=== PATIENT | male | born 1970 | race Caucasian/White ===

== ENCOUNTER 2018-01-10 08:01 | Emergency (ER) | payer OTHER ==
[2018-01-10] MEDS ORDERED: (BACK ORDERED; DO NOT ORDER) DIAZEPAM 5 MG/ML DISP.SYRIN IM ONE (08:31)
[2018-01-10] MEDS ORDERED: KETOROLAC TROMETHAMINE 60 MG/2 ML VIAL IM ONE (08:31)
[2018-01-10] MEDS ORDERED: ORPHENADRINE CITRATE 60 MG/2ML ONE (08:35)
--- NOTE | 2018-01-10 09:18 | ED Physician Documentation ---
General Adult - HISTORIAN Historian: patient - HPI Stated Complaint: L sciatic pain Chief Complaint: General Adult Onset: days ago Timing: still present Severity: moderate Further Comments: yes (Pt is a 47 yo male with L hip pain, sciatica. Pt has had pain for the past 2 weeks, radiating to L LE. Pt was intitially seen by chiropractor, and later at Urgent Care where he was thought to have a possible kidney stone. Pt had plain film abd x-ray at that time. Pt was rx'd Toradol po and prednisone.) - ROS CONST: no problems EYES/ENT: none CVS/RESP: none GI/: none MS/SKIN/LYMPH: back pain (sciatica, L hip pain) - PAST HX Past History: hypertension Surgeries/Procedures: other (tonsillectomy, vasectomy) Allergies/Adverse Reactions: Allergies Allergy/AdvReac Type Severity Reaction Status Date / Time No Known Drug Allergies Allergy Unverified 01/10/18 08:22 Home Medications: Ambulatory Orders Medication Instructions Recorded Ketorolac Tromethamine 10 mg PO Q6 01/10/18 predniSONE [Deltasone] 20 mg PO DAILY 01/10/18 - SOCIAL HX Smoking History: cigarettes - FAMILY HX Family History: No - VITAL SIGNS Vital Signs: Vital Signs Temp Pulse Resp BP Pulse Ox 98.4 F 97 H 20 133/90 94 01/10/18 08:22 01/10/18 08:22 01/10/18 08:22 01/10/18 08:22 01/10/18 08:22 - REVIEWED ASSESSMENTS Nursing Assessment Reviewed: Yes Vitals Reviewed: Yes Progress - Progress Progress: Toradol 60 mg IM Norflex 60 mg IM improved Rx Valium 5 mg. Take one every 6 to 8 hours as needed for muscle spasm. Continue other home meds as directed. ED Results Lab/Radiology - Orders Orders: ED Orders Category Date Time Status LT HIP 2VIEW COMPLETE [RAD] Stat Exams 01/10/18 Ordered UA [URINALYSIS] Routine Lab 01/10/18 Ordered Diazepam [Valium] Med 01/10/18 08:31 Discontinued 10 mg IM NOW ONE Ketorolac Tromethamine [Toradol] Med 01/10/18 08:31 Discontinued 60 mg IM NOW ONE Orphenadrine Citrate [Norflex] Med 01/10/18 08:35 Discontinued 60 mg .ROUTE .STK-MED ONE General Adult Physical Exam - PHYSICAL EXAM GENERAL APPEARANCE: moderate distress NECK: normal inspection, supple RESPIRATORY: no resp distress, chest non-tender, breath sounds normal CVS: reg rate & rhythm, heart sounds normal ABDOMEN: soft, no organomegaly, normal bowel sounds BACK: normal inspection, no CVA tenderness, other (muscle spasm, L lumbar region ) SKIN: warm/dry, normal color EXTREMITIES: normal range of motion, other (DTR's wnl) NEURO: oriented X3, motor nml, sensation nml, other (L hip pain, radiating to L LE) Discharge Clincal Impression: L hip pain, sciatica Referrals: Enoc Osborne MD [Primary Care Provider] - Condition: Good Disposition: 01 HOME, SELF-CARE Decision to Admit: NO Decision Time: 10:29
--- NOTE | 2018-01-10 09:29 | Diagnostic Imaging Report ---
[address] [facility] [address] [facility] [address] [address] Report Submission Date: Jan 10, 2018 9:17:35 AM CDT Patient Study Name: DANNY BARTON Date: Jan 10, 2018 8:45:16 AM CDT Modality Type: DX Gender: M Description: PELVIS : 70 Institution: [facility] Physician: [address] Left hip 2 views History: Left hip pain Findings: The left hip is unremarkable without fracture, dislocation, arthropathy, or focal bone lesion. Electronically signed on Jan 10, 2018 9:17:35 AM CDT by: Zechariah HANDLEY
[2018-01-10 10:43] VITALS: BP 128/82
[2018-01-11 06:18] LABS: APPEARANCE,URINE CLOUDY (CLEAR); COLOR,URINE YELLOW (YELLOW)
[2018-01-11 06:19] LABS: OCCULT BLOOD,URINE TRACE-LYSED (NEGATIVE); PH URINE 5.5 (5.0 - 8.0); UROBILINOGEN URINE 0.2 Eu (0.2-1.0)
== END 2018-01-10 10:41 | disposition home or self-care (01) ==
LOC: ED 08:01
DX: M25.552 Pain in left hip (principal); M54.30 Sciatica, unspecified side
CPT/HCPCS: 73502; 81002; J1885; J2360; 96372

== ENCOUNTER 2018-12-07 18:26 | Emergency (ER) | payer SELFPAY ==
[2018-12-07] MEDS: NITROGLYCERIN 0.4 MG TAB.SUBL SL ONE (18:38)
[2018-12-07] MEDS: ASPIRIN 81 MG CHEW TAB PO ONE (18:40)
[2018-12-07] MEDS: ASPIRIN 81 MG CHEW TAB ONE (18:40)
--- NOTE | 2018-12-07 18:48 | ED Physician Documentation ---
Chest Pain - HPI Stated Complaint: chest pain Chief Complaint: Chest Pain Additional Information: Patient presents to ED with chest pressure, shortness of breath, light- headedness, numbness and tingling in hands feet. Patient states his symptoms began about 45 minutes ago while driving [place] [address]. He states he nearly passed out twice while driving before he arrived to ED. He denies fever, chills, nausea, vomiting, or diaphoresis. Patient reports having similar brief intermittent episodes a week prior. Onset: minutes (45) Timing: sudden onset Duration: constant Last known Well Date: 12/07/18 Last Known Well Time: 17:00 Context: other (driving) Severity: mild Quality: pressure Chest Pain Radiation: no radiation Chest Pain Signs/Symptoms: dizziness, tachycardia. denies: nausea, vomiting, diaphoresis Worsened By: nothing Relieved By: nothing - ROS CONST: denies: fever MS/LYMPH: none GI/: denies: vomiting, nausea EYES/ENT: none SKIN/ENDO: none NEURO/PSYCH: none - PAST HX LA risk factors: hypertension DVT/PE Risk Factors: denies: leg swelling TAD/AAA risk factors: none Neuro deficit: none GI disease: none Lung disease: COPD Surgeries/Procedures: none Allergies/Adverse Reactions: Allergies Allergy/AdvReac Type Severity Reaction Status Date / Time No Known Drug Allergies Allergy Verified 12/07/18 18:38 - SOCIAL HX Smoking History: cigarettes, greater than 1 pack/day Alcohol Use: none Drug Use: none - FAMILY HX Family HX: none - VITAL SIGNS Vital Signs: Vital Signs Temp Pulse Resp BP Pulse Ox 96 H 24 166/120 99 12/07/18 18:26 12/07/18 18:26 12/07/18 18:26 12/07/18 18:26 - REVIEWED ASSESSMENTS Nursing Assessment Reviewed: Yes Vitals Reviewed: Yes Progress - Progress Progress: 1929 Patient is chest pain free and blood pressure has normalized. 2054 Second troponin is also negative. ED Results Lab/Radiology - Radiology Radiology Impressions: Report Submission Date: Dec 07, 2018 6:54:04 PM MANAGING MANAGER Patient Study Name: DANNY BARTON Date: Dec 07, 2018 6:32:00 PM MANAGING MANAGER Modality Type: DX Gender: M Description: CHEST 1VIEW : 70 Institution: [facility] Physician: FREEDOM ELLIS EXAMINATION: CHEST 1VIEW HISTORY: CHEST PAIN X 2 DAYS. 3-4 PPD SMOKER. NO PREVIOUS CARDIAC/PULMONARY HX. (Hx) COMPARISON: None FINDINGS: There is no focal consolidation, pleural effusion, or pneumothorax. The cardiomediastinal silhouette is normal. The visible bony thorax is intact. IMPRESSION: No acute pulmonary process. Electronically signed on Dec 07, 2018 6:54:04 PM MANAGING MANAGER by: Myron Major - Orders Orders: ED Orders Category Date Time Status Place IV Lock 1T Care 12/07/18 18:33 Ordered CHEST 1VIEW [RAD] Stat Exams 12/07/18 Ordered CBC/PLATELET/DIFF Routine Lab 12/07/18 Ordered CMP Routine Lab 12/07/18 Ordered NT-proBNP Stat Lab 12/07/18 Ordered TROPONIN I (cTnI) Stat Lab 12/07/18 Ordered Aspirin [Nilda] Med 12/07/18 18:35 Discontinued 324 mg .ROUTE .STK-MED ONE Aspirin [Nilda] Med 12/07/18 18:34 Once 324 mg PO NOW ONE Nitroglycerin [Nitroquick] Med 12/07/18 18:34 Once 0.4 mg SL NOW ONE EKG WITH COMPARISON Stat Ther 12/07/18 Ordered Chest Pain Physical Exam - EXAM General Appearance: mild distress EENT: MYRA Neck: nml inspection Respiratory: no resp. distress, chest non-tender, nml breath sounds CVS: reg. rate & rhythm, no murmur Abdomen: soft, normal bowel sounds, non-tender Skin: warm/dry, normal color Extremities: non-tender Neuro: oriented X3 Discharge Clincal Impression: Accelerated hypertension Referrals: Enoc Osborne MD [Primary Care Provider] - 2 Days Additional Instructions: 1. Smoking cessation strongly advised 2. Daily exercise would be beneficial 3. Follow up with PCP within 3 days. 4. Return to ER for new or worsening symptoms Condition: Stable Disposition: 01 HOME, SELF-CARE Decision to Admit: NO Date of Decison to Admit: 12/07/18 Decision Time: 20:59
[2018-12-07 18:56] LABS: BASOPHILS % 4.2 (0.0-1.5); EOSINOPHILS % 3.6 % (0.0-6.8); MONOCYTES % 8.3 % (0.0-11.0)
--- NOTE | 2018-12-07 18:58 | Diagnostic Imaging Report ---
FREEDOM ELLIS [facility] [address] [facility] [address] [place], [place]. [address] Report Submission Date: Dec 07, 2018 6:54:04 PM MACHINE FANCY STITCHER Patient Study Name: DANNY BARTON Date: Dec 07, 2018 6:32:00 PM MACHINE FANCY STITCHER Modality Type: DX Gender: M Description: CHEST 1VIEW : 70 Institution: [facility] Physician: FREEDOM ELLIS EXAMINATION: CHEST 1VIEW HISTORY: CHEST PAIN X 2 DAYS. 3-4 PPD SMOKER. NO PREVIOUS CARDIAC/PULMONARY HX. (Hx) COMPARISON: None FINDINGS: There is no focal consolidation, pleural effusion, or pneumothorax. The cardiomediastinal silhouette is normal. The visible bony thorax is intact. IMPRESSION: No acute pulmonary process. Electronically signed on Dec 07, 2018 6:54:04 PM MACHINE FANCY STITCHER by: Myron HANDLEY
[2018-12-07 18:59] LABS: NEUTROPHILS # 4.6 # k/uL (1.4-7.7)
[2018-12-07 19:01] LABS: eGFR (Non-African) > 60
[2018-12-08 00:31] VITALS: BP 132/68
== END 2018-12-07 21:11 | disposition home or self-care (01) ==
LOC: ED 18:26
DX: I10 Essential (primary) hypertension (principal); Z72.0 Tobacco use
CPT/HCPCS: 36415; 71045; 80053; 83880; 84484; 85025; 99283; 99284; S1016